=== PATIENT | male | born 1955 | race Caucasian/White ===

== ENCOUNTER → 2016-08-15 | Outpatient (CLI) | payer BC ==
[~2016-08-15] VITALS: Ht 172.7 cm; Wt 90.3 kg
[~2016-08-15] MED LIST: ASPI81TA85 PO; BREO1INH INH; CHLO125TA PO; LEVOTAB10 PO; LIDOCAINE 2% INJ 100 MG/5 ML SDV (FOR ANES.) As Ordered ONE; LOSA25TA8 PO; MELO15TA4 PO; MONT10TA2 PO; NS 1,000 ML IV SCH; PROA1AER INH; PROPOFOL 200 MG/20 ML VIAL As Ordered ONE; SILD50TA; SILD50TA PO; SIMV20TA2 PO
--- NOTE | 2016-08-15 08:09 | ROOR ---
Patient Name: Sesar Romero Procedure Date: 08/15/2016 7:50 AM Date of : 1955 Age: 61 Room: [facility] Gender: Male Note Status: Finalized Procedure: Colonoscopy Indications: Screening for colorectal malignant neoplasm, Family history of colon cancer Providers: Sesar SESAY MD Referring MD: ALICIA ROMAN MD Requesting Provider: Medicines: Monitored Anesthesia Care Complications: No immediate complications. Procedure: Pre-Anesthesia Assessment: - The heart rate, respiratory rate, oxygen saturations, blood pressure, adequacy of pulmonary ventilation, and response to care were monitored throughout the procedure. The Colonoscope was introduced through the anus and advanced to the cecum, identified by appendiceal orifice and ileocecal valve. The colonoscopy was performed without difficulty. Findings: The perianal and digital rectal examinations were normal. (Exam: Complete, Prep: Good or Excellent.) Multiple medium-mouthed diverticula were found in the left colon. The entire colon appeared normal on direct and retroflexion views. Impression: - (Exam: Complete, Prep: Good or Excellent.) - Mild diverticulosis in the left colon. - The entire colon is normal on direct and retroflexion views. - No specimens collected. Recommendation: - Repeat colonoscopy in 10 years for screening purposes. Sesar Sesay MD Sesar SESAY MD 08/15/2016 8:09:14 AM This report has been signed electronically. Number of Addenda: 0 Note Initiated On: 08/15/2016 7:50 AM Estimated Blood Loss: Estimated blood loss: none.
[2016-08-15 08:32] VITALS: BP 144/84
== END ==
LOC: M OPP 06:53
PROVIDERS: ATTEND Internal Medicine Gastroenterology
DX: Z12.11 Encounter for screening for malignant neoplasm of colon (principal); Z80.0 Family history of malignant neoplasm of digestive organs; K57.30 Diverticulosis of large intestine without perforation or abscess without bleeding; I10 Essential (primary) hypertension; J45.909 Unspecified asthma, uncomplicated; G47.30 Sleep apnea, unspecified; E78.5 Hyperlipidemia, unspecified; Z85.820 Personal history of malignant melanoma of skin; Z79.82 Long term (current) use of aspirin; Z79.899 Other long term (current) drug therapy; Z88.0 Allergy status to penicillin; Z88.2 Allergy status to sulfonamides; Z88.1 Allergy status to other antibiotic agents

== ENCOUNTER → 2017-01-26 | Outpatient (CLI) | payer BC ==
[~2017-01-26] MED LIST changes: -LIDOCAINE 2% INJ 100 MG/5 ML SDV (FOR ANES.) As Ordered ONE; -NS 1,000 ML IV SCH; -PROA1AER INH; +PROAAER10 INH; -PROPOFOL 200 MG/20 ML VIAL As Ordered ONE
--- NOTE | 2017-01-26 22:58 | REP ---
Clinical: Pain. Technique: AP, lateral, bilateral oblique views of the right hand. Findings: Moderate arthritic degenerative changes are appreciated involving the interphalangeal joints as well as the first metatarsophalangeal joint. Findings include subchondral sclerosis and joint space narrowing. Surrounding soft tissues are normal. No acute fracture or dislocation. Impression: Moderate diffuse arthritic changes. Signed by Juan Seo MD 01/26/2017 10:50 P
== END ==
LOC: M WUC 10:38
PROVIDERS: ATTEND Physician Assistant
DX: M19.041 Primary osteoarthritis, right hand (principal)